=== PATIENT | female | born 1985 | race Two or more races ===

== ENCOUNTER 2017-05-16 13:32 | Emergency (ER) | payer SELFPAY ==
[~2017-05-16] VITALS: Ht 162.6 cm; Wt 72.6 kg
[2017-05-16 13:46] VITALS: BP 109/65
[2017-05-16 14:08] LABS: APPEARANCE,URINE SLIGHTLY CLOUDY; KETONES,URINE 1+ (NEGATIVE); LEUKOCYTE ESTERASE ,URINE 1+ (NEGATIVE); NITRITE,URINE POSITIVE (NEGATIVE); PH,URINE 6 (4.5-8.0); PROTEIN,URINE NEGATIVE (NEGATIVE); UROBILINOGEN,URINE 1 MG/DL (0.0-1.0)
[2017-05-16] MEDS ORDERED: KEFLEX500 MG ORAL (14:16)
[2017-05-16 14:21] LABS: RBC,URINE 0-2 /HPF (0 - 2)
[2017-05-16 14:22] LABS: AMORPHOUS SEDIMENT,UR MANY /LPF; BACTERIA,URINE MODERATE /HPF; SQUAMOUS EPITHELIAL CELL,UR MODERATE /LPF (NONE/OCC)
[2017-05-16 14:24] VITALS: BP 109/65
--- NOTE | 2017-05-16 14:25 | Emergency Room Report ---
History of Present Illness General Chief Complaint: Female Urogenital Problems Source: Patient Present Illness HPI 31 yo F no sig pmhx p/w dysuria. Pt states symptoms began one week ago. States that it has been intermittent, and then went away, and now symptoms are now back for the last 2 days. +dysuria , frequency, urgency. No hematuria. Complains of mild left-sided back pain. No fever chills Monogamous with 1 partner. No hx of STDs. Denies abnormal vaginal discharge or bleeding. Allergies: Coded Allergies: No Known Allergies (Unverified , 05/16/17) Patient History Past Medical History: see triage record Past Surgical History: none Pertinent Family History: none Now: No Reviewed Nursing Documentation: PMH: Agreed, PSxH: Agreed Nursing Documentation-PMH Past Medical History: No Stated History Review of Systems All Other Systems: negative except mentioned in HPI Physical Exam Vital Signs Date Time Temp Pulse Resp B/P (MAP) Pulse Ox O2 Delivery O2 Flow Rate FiO2 05/16/17 13:36 98.4 77 20 108/69 99 Room Air Sp02 EP Interpretation: reviewed, normal General Appearance: normal inspection, well appearing, no apparent distress, alert, GCS 15, non-toxic Head: normocephalic, atraumatic Eyes: bilateral eye normal inspection, bilateral eye PERRL, bilateral eye EOMI ENT: normal ENT inspection, normal pharynx, normal voice, moist mucus membranes Neck: normal inspection, full range of motion, supple Respiratory: normal inspection, lungs clear, normal breath sounds, no respiratory distress, no retraction, no wheezing, speaking full sentences, chest symmetrical Cardiovascular #1: normal inspection, regular rate, rhythm, no edema, normal capillary refill Cardiovascular #2: 2+ radial (R), 2+ radial (L) Gastrointestinal: other - +suprapubic tenderness no guarding or rebound non tender all other parts of abdomen Genitourinary: other - +L sided cva tenderness Musculoskeletal: normal inspection, back normal, normal range of motion, non- tender Neurologic: normal inspection, alert, oriented x3, responsive, motor strength/ tone normal, sensory intact, normal gait, speech normal Psychiatric: normal inspection, judgement/insight normal, memory normal Skin: normal inspection, normal color, no rash, warm/dry, well hydrated, normal turgor Medical Decision Making Diagnostic Impression: Primary Impression: UTI (urinary tract infection) ER Course 31 yo F with dysuria DDX: UTI / cystitis vs. pyelo vs STD Plan: UA, UCX ER course: Pt remains stable/nontoxic appearing in ED. UA positive Disposition: Patient will be discharged home with prescription of antibiotics. Strict return precautions to discussed with patient such as high fever, chills, abdominal pain , nausea or vomiting. Patient verbalized understanding. Patient instructed to follow up with primary care doctor within 3 days. Patient agrees with plan. Please note that this Emergency Department Report was dictated using [employer] cover machine operator technology software, occasionally this can lead to erroneous entry secondary to interpretation by the dictation equipment Last Vital Signs Date Time Temp Pulse Resp B/P (MAP) Pulse Ox O2 Delivery O2 Flow Rate FiO2 05/16/17 13:46 99.0 67 16 109/65 95 Room Air Disposition: HOME, SELF-CARE Condition: Stable Scripts Cephalexin* (KEFLEX*) 500 Mg Capsule 500 MG ORAL Q6H for 7 Days, #28 CAP 0 Refills Prov: Jennifer Pastor M.D. 05/16/17 Patient Instructions: Urinary Tract Infection Jennifer Pastor M.D. May 16, 2017 14:25
== END 2017-05-16 14:24 | disposition home or self-care (01) ==
LOC: EMR 14:10
DX: N39.0 Urinary tract infection, site not specified (principal)
CPT/HCPCS: 81003; 81025; 87086; 87181; 99283